=== PATIENT | female | born 1990 | race Caucasian/White ===

== ENCOUNTER → 2020-09-26 | Outpatient (CLI) | payer BC ==
[2020-09-26 20:21] LABS: FOLATE LEVEL 17.5 ng/mL (3.1-17.5); FREE T4 (FREE THYROXINE) 0.93 ng/dL (0.76-1.46); PREALBUMIN 30.4 mg/dL (20.0-40.0)
== END | disposition home or self-care (01) ==
LOC: LAB 19:02
PROVIDERS: ATTEND Family Medicine
DX: Z13.228 Encounter for screening for other metabolic disorders (principal); R21 Rash and other nonspecific skin eruption; L65.9 Nonscarring hair loss, unspecified; L30.8 Other specified dermatitis; B35.4 Tinea corporis; Z68.1 Body mass index [BMI] 19.9 or less, adult
CPT/HCPCS: 36415; 82607; 82728; 82746; 83540; 83550; 84134; 84439; 84443; 86038; 86592; 87535